=== PATIENT | male | born 1985 | race Caucasian/White ===

== ENCOUNTER 2020-07-01 11:02 | Emergency (ER) | payer MEDICAID ==
--- NOTE | 2020-07-01 11:35 | EDM.PDOC ---
ED HPI GENERAL MEDICAL PROBLEM - General Chief Complaint: General Stated Complaint: RETAINING FLUID HAS CHF Time Seen by Provider: 07/01/20 11:25 Source of Information: Reports: Patient History Limitations: Reports: No Limitations - History of Present Illness INITIAL COMMENTS - FREE TEXT/NARRATIVE: This 35 yo male patient reports to the ED with swelling of his lower extremities and increased shortness of breath. The patient reports he does have a history of CHF and was seen in [place] 2 weeks ago with similar symptoms. The patient reports he has been taking his medications as directed. The patient does admit to eating Ramen Noodles yesterday, but no additional changes to his diet. Onset Date: 06/30/20 Duration: Constant, Getting Worse Location: Reports: Chest, Lower Extremity, Left, Lower Extremity, Right Quality: Reports: Other Severity: Moderate Worsens with: Reports: None Context: Reports: Other Associated Symptoms: Reports: Shortness of Breath - Related Data Allergies Allergy/AdvReac Type Severity Reaction Status Date / Time ciprofloxacin [From Cipro] Allergy Cannot Verified 07/01/20 11:16 Remember Home Meds: Home Meds Furosemide [Lasix] 40 mg PO DAILY 07/01/20 [History] Potassium Chloride 1 tab PO DAILY 07/01/20 [History] Sacubitril/Valsartan [Entresto 24 mg-26 mg Tablet] 1 tab PO BID 07/01/20 [History] Past Medical History - Past Health History Medical/Surgical History: Denies Medical/Surgical History Cardiovascular History: Reports: Other (See Below) Other Cardiovascular History: CHF Social & Family History - Tobacco Use Tobacco Use Status *Q: Current Every Day Tobacco User Years of Tobacco use: 20 Packs/Tins Daily: 0.5 Used Tobacco, but Quit: No Second Hand Smoke Exposure: Yes - Caffeine Use Caffeine Use: Reports: Soda - Recreational Drug Use Recreational Drug Use: No ED ROS GENERAL - Review of Systems Review Of Systems: Comprehensive ROS is negative, except as noted in HPI. ED EXAM, GENERAL - Physical Exam Exam: See Below Exam Limited By: No Limitations General Appearance: Alert, WD/WN, No Apparent Distress Eye Exam: Bilateral Eye: EOMI, Normal Inspection, PERRL Ears: Normal External Exam, Normal Canal, Hearing Grossly Normal, Normal TMs Nose: Normal Inspection, Normal Mucosa, No Blood Throat/Mouth: Normal Inspection, Normal Lips, Normal Teeth, Normal Gums, Normal Oropharynx, Normal Voice, No Airway Compromise Head: Atraumatic, Normocephalic Neck: Normal Inspection, Supple, Non-Tender, Full Range of Motion Respiratory/Chest: No Respiratory Distress, Lungs Clear, Normal Breath Sounds, No Accessory Muscle Use, Chest Non-Tender Cardiovascular: Normal Peripheral Pulses, Regular Rate, Rhythm, No Gallop, No JVD, No Murmur, No Rub GI/Abdominal: Normal Bowel Sounds, Soft, Non-Tender, No Organomegaly, No Distention, No Abnormal Bruit, No Mass (Male) Exam: Deferred Rectal (Males) Exam: Deferred Back Exam: Normal Inspection, Full Range of Motion, NT Extremities: Pedal Edema Neurological: Alert, Oriented, CN II-XII Intact, Normal Cognition, Normal Gait, Normal Reflexes, No Motor/Sensory Deficits Psychiatric: Normal Affect, Normal Mood Skin Exam: Warm, Dry, Intact, Normal Color, No Rash Lymphatic: No Adenopathy #1 Interpretation EKG Date: 07/01/20 Time: 11:29 Rhythm: Other (Sinus Tach) [place]: Normal P-Wave: Present QRS: Normal ST-T: Normal QT: Normal Comparison: No Change Course - Vital Signs Last Recorded V/S: Last Vital Signs Temp 37.5 C 07/01/20 11:18 Pulse 109 H 07/01/20 11:18 Resp 18 07/01/20 11:18 BP 117/83 07/01/20 11:18 Pulse Ox 100 07/01/20 11:18 - Orders/Labs/Meds Orders: Active Orders 24 hr Category Date Time Status EKG Documentation Completion [RC] STAT Care 07/01/20 11:24 Ordered Labs: Laboratory Tests 07/01/20 07/01/20 Range/Units 11:34 11:34 WBC 4.7 L (5.0-10.0) 10^3/uL RBC 4.39 L (4.6-6.2) 10^6/uL Hgb 14.2 (14.0-18.0) g/dL Hct 41.9 (40.0-54.0) % MCV 95.4 (80-100) fL MCH 32.3 (27.0-34.0) pg MCHC 33.9 (33.0-35.0) g/dL Plt Count 157 (150-450) 10^3/uL Neut % (Auto) 55.6 (42.2-75.2) % Lymph % (Auto) 25.9 (20.5-50.1) % [place] % (Auto) 11.8 H (2-8) % Eos % (Auto) 5.8 H (1.0-3.0) % Baso % (Auto) 0.9 (0.0-1.0) % Sodium 140 (136-145) mmol/L Potassium 3.7 (3.5-5.1) mmol/L Chloride 104 (98-107) mmol/L Carbon Dioxide 27 (21-32) mmol/L Anion Gap 12.7 (7-13) mEq/L BUN 26 H (7-18) mg/dL Creatinine 1.26 (0.70-1.30) mg/dL Est Cr Clr Drug Dosing 88.10 mL/min Estimated GFR (MDRD) > 60 BUN/Creatinine Ratio 20.6 (No establ ref range) Glucose 122 H (74-99) mg/dL Calcium 8.2 L (8.5-10.1) mg/dL Total Bilirubin 1.1 H (0.2-1.0) mg/dL AST 67 H (15-37) U/L ALT 61 (16-63) U/L Alkaline Phosphatase 105 (46-116) U/L Troponin I 0.022 (0.000-0.056) ng/mL B-Natriuretic Peptide 1490 H (0-100) pg/ml Total Protein 6.2 L (6.4-8.2) g/dL Albumin 3.1 L (3.4-5.0) g/dL Globulin 3.1 Albumin/Globulin Ratio 1.00 Meds: Medications Discontinued Medications Generic Name Dose Route Start Last Admin Trade Name Freq PRN Reason Stop Dose Admin Furosemide 80 mg 07/01/20 12:21 07/01/20 12:38 Furosemide 40 Mg/4 Ml Vial IVPUSH 07/01/20 12:22 80 mg NOW ONE Administration Departure - Departure Time of Disposition: 13:50 Disposition: Home, Self-Care 01 Condition: Fair Clinical Impression: CHF (congestive heart failure) Qualifiers: Heart failure type: unspecified Heart failure chronicity: acute on chronic Qualified Code(s): I50.9 - Heart failure, unspecified - Discharge Information *PRESCRIPTION DRUG MONITORING PROGRAM REVIEWED*: Not Applicable *COPY OF PRESCRIPTION DRUG MONITORING REPORT IN PATIENT CASIMIRO: Not Applicable Instructions: Heart Failure, Self Care, [id number] Forms: ED Department Discharge Care Plan Goals: The patient was advised of the examination, lab, EKG and x-ray results during the visit. The patient was given an IV dose of Lasix while in the ED. The patient was encouraged to continue to take his medications as prescribed and follow a low sodium diet. The patient should follow-up with his primary care f acility next week. If the patient has any additional symptoms or concerns, the patient should either return to the emergency department or visit his primary care facility. Sepsis Event Note (ED) - Evaluation Sepsis Screening Result: No Definite Risk - Focused Exam Vital Signs: Vital Signs Temp Pulse Resp BP Pulse Ox 07/01/20 11:18 37.5 C 109 H 18 117/83 100 - My Orders Last 24 Hours: My Active Orders 07/01/20 11:24 EKG Documentation Completion [RC] STAT - Assessment/Plan Last 24 Hours: My Active Orders 07/01/20 11:24 EKG Documentation Completion [RC] STAT
[2020-07-01 12:01] LABS: ANION GAP 12.7 mEq/L (7-13); CHLORIDE,CL 104 mmol/L (98-107); SODIUM,NA 140 mmol/L (136-145)
--- NOTE | 2020-07-01 12:13 | CR ---
PROCEDURE INFORMATION: Exam: XR Chest Exam date and time: 07/01/2020 11:52 AM Age: 35 years old Clinical indication: Shortness of breath; Additional info: Short of breath (history of chf) TECHNIQUE: Imaging protocol: XR of the chest Views: 1 view. COMPARISON: No relevant prior studies available. FINDINGS: Lungs: No CHF. No consolidation. Pleural spaces: Unremarkable. No pleural effusion. No pneumothorax. Heart/Mediastinum: Cardiomegaly. Bones/joints: No acute findings. IMPRESSION: Cardiomegaly. No CHF.
[2020-07-01] MEDS ORDERED: Furosemide 40 MG/4 ML VIAL IVPUSH ONE (12:21)
== END 2020-07-01 14:13 | disposition home or self-care (01) ==
LOC: DL.ED 11:02
DX: I50.9 Heart failure, unspecified (principal); R00.0 Tachycardia, unspecified; Z72.0 Tobacco use; Z88.1 Allergy status to other antibiotic agents; Z79.899 Other long term (current) drug therapy
CPT/HCPCS: 36415; 71045; 80053; 83880; 84484; 85025; 93005; 93010; 96374; 99284; 99285; J1940

== ENCOUNTER 2020-08-05 01:40 | Emergency (ER) | payer MEDICAID ==
--- NOTE | 2020-08-05 01:47 | EDM.PDOC ---
ED HPI GENERAL MEDICAL PROBLEM - General Stated Complaint: CONGESTED HEART FAILURE, DIFFICULTY BREATHING Time Seen by Provider: 08/05/20 01:44 Source of Information: Reports: Patient, RN History Limitations: Reports: No Limitations - History of Present Illness INITIAL COMMENTS - FREE TEXT/NARRATIVE: ED with c/o retaining fluid, SOB swollen ankles. Has been increasing past couple of days worse tonight when trying to lie down, Hx of CHF secondary to ETOH and meth use. Cardiology f/u pending for pacemaker with AICD. States fluid restriction at home, " tries to stick to 1200ml daily" No fever or cough. No chest pain but felt heart punding harder when attempting to lie flat. - Related Data Allergies Allergy/AdvReac Type Severity Reaction Status Date / Time ciprofloxacin [From Cipro] Allergy Cannot Verified 07/01/20 11:16 Remember Home Meds: Home Meds Furosemide [Lasix] 40 mg PO DAILY 07/01/20 [History] Potassium Chloride 1 tab PO DAILY 07/01/20 [History] Sacubitril/Valsartan [Entresto 24 mg-26 mg Tablet] 1 tab PO BID 07/01/20 [History] Past Medical History - Past Health History Medical/Surgical History: Denies Medical/Surgical History Cardiovascular History: Reports: Other (See Below) Other Cardiovascular History: CHF Social & Family History - Caffeine Use Caffeine Use: Reports: Soda ED ROS GENERAL - Review of Systems Review Of Systems: Comprehensive ROS is negative, except as noted in HPI. ED EXAM, GENERAL - Physical Exam Exam: See Below Exam Limited By: No Limitations General Appearance: Alert, Anxious, Mild Distress Eye Exam: Bilateral Eye: EOMI, PERRL Nose: Normal Inspection Throat/Mouth: Normal Inspection Neck: Normal Inspection Respiratory/Chest: No Respiratory Distress, Decreased Breath Sounds, Crackles (few bibasilar), Other (talking full sentences without interrruption) Cardiovascular: Normal Peripheral Pulses, Regular Rate, Rhythm. No: No Edema (2+) GI/Abdominal: Normal Bowel Sounds, Other (abdomen orund) Neurological: Alert, Oriented Psychiatric: Anxious Course - Vital Signs Last Recorded V/S: Last Vital Signs Temp 97.2 F 08/05/20 01:43 Pulse 109 H 08/05/20 01:43 Resp 24 H 08/05/20 01:43 BP 155/135 H 08/05/20 01:43 Pulse Ox 100 08/05/20 01:43 - Orders/Labs/Meds Orders: Active Orders 24 hr Category Date Time Status EKG Documentation Completion [RC] URGENT Care 08/05/20 01:45 Active Labs: Laboratory Tests 08/05/20 08/05/20 08/05/20 Range/Units 01:48 01:48 01:48 WBC 6.1 (5.0-10.0) 10^3/uL RBC 4.93 (4.6-6.2) 10^6/uL Hgb 15.5 (14.0-18.0) g/dL Hct 47.1 (40.0-54.0) % MCV 95.5 (80-100) fL MCH 31.4 (27.0-34.0) pg MCHC 32.9 L (33.0-35.0) g/dL Plt Count 201 (150-450) 10^3/uL Neut % (Auto) 49.4 (42.2-75.2) % Lymph % (Auto) 34.7 (20.5-50.1) % [place] % (Auto) 11.6 H (2-8) % Eos % (Auto) 3.8 H (1.0-3.0) % Baso % (Auto) 0.5 (0.0-1.0) % PT 12.5 H (9.0-12.0) SEC INR 1.3 H (0.9-1.2) Sodium 133 L (136-145) mmol/L Potassium 4.5 (3.5-5.1) mmol/L Chloride 100 (98-107) mmol/L Carbon Dioxide 25 (21-32) mmol/L Anion Gap 12.5 (7-13) mEq/L BUN 28 H (7-18) mg/dL Creatinine 1.44 H (0.70-1.30) mg/dL Est Cr Clr Drug Dosing 77.09 mL/min Estimated GFR (MDRD) 55 BUN/Creatinine Ratio 19.4 (No establ ref range) Glucose 110 H (70-99) mg/dL Calcium 8.1 L (8.5-10.1) mg/dL Magnesium 2.0 (1.8-2.4) mg/dL Total Bilirubin 1.3 H (0.2-1.0) mg/dL AST 60 H (15-37) U/L ALT 56 (16-63) U/L Alkaline Phosphatase 142 H (46-116) U/L Troponin I < 0.017 (0.000-0.056) ng/mL B-Natriuretic Peptide 1720 H (0-100) pg/ml Total Protein 6.9 (6.4-8.2) g/dL Albumin 3.3 L (3.4-5.0) g/dL Globulin 3.6 Albumin/Globulin Ratio 0.92 Ethyl Alcohol (0) mg/dL 08/05/20 Range/Units 01:48 WBC (5.0-10.0) 10^3/uL RBC (4.6-6.2) 10^6/uL Hgb (14.0-18.0) g/dL Hct (40.0-54.0) % MCV (80-100) fL MCH (27.0-34.0) pg MCHC (33.0-35.0) g/dL Plt Count (150-450) 10^3/uL Neut % (Auto) (42.2-75.2) % Lymph % (Auto) (20.5-50.1) % [place] % (Auto) (2-8) % Eos % (Auto) (1.0-3.0) % Baso % (Auto) (0.0-1.0) % PT (9.0-12.0) SEC INR (0.9-1.2) Sodium (136-145) mmol/L Potassium (3.5-5.1) mmol/L Chloride (98-107) mmol/L Carbon Dioxide (21-32) mmol/L Anion Gap (7-13) mEq/L BUN (7-18) mg/dL Creatinine (0.70-1.30) mg/dL Est Cr Clr Drug Dosing mL/min Estimated GFR (MDRD) BUN/Creatinine Ratio (No establ ref range) Glucose (70-99) mg/dL Calcium (8.5-10.1) mg/dL Magnesium (1.8-2.4) mg/dL Total Bilirubin (0.2-1.0) mg/dL AST (15-37) U/L ALT (16-63) U/L Alkaline Phosphatase (46-116) U/L Troponin I (0.000-0.056) ng/mL B-Natriuretic Peptide (0-100) pg/ml Total Protein (6.4-8.2) g/dL Albumin (3.4-5.0) g/dL Globulin Albumin/Globulin Ratio Ethyl Alcohol < 3 (0) mg/dL Meds: Medications Discontinued Medications Generic Name Dose Route Start Last Admin Trade Name Freq PRN Reason Stop Dose Admin Furosemide 40 mg 08/05/20 02:33 08/05/20 02:39 Furosemide 40 Mg/4 Ml Vial IVPUSH 08/05/20 02:34 40 mg NOW ONE Administration Departure - Departure Time of Disposition: 03:13 Disposition: Home, Self-Care 01 Condition: Good Clinical Impression: CHF (congestive heart failure) Qualifiers: Heart failure type: unspecified Heart failure chronicity: acute on chronic Qualified Code(s): I50.9 - Heart failure, unspecified Instructions: Heart Failure, Diagnosis, [id number], Edema, [id number] Additional Instructions: limit fluids low sodium diet lasix 40mg additional at 4 pm x 2 days recheck Clinic on Sunday, Urgent follow up symptoms worsen, difficulty breathing, fever, cough chest pain Sepsis Event Note (ED) - Focused Exam Vital Signs: Vital Signs Temp Pulse Resp BP BP Pulse Ox 08/05/20 01:43 97.2 F 109 H 24 H 155/135 H 123/100 H 100 - My Orders Last 24 Hours: My Active Orders 08/05/20 01:45 EKG Documentation Completion [RC] URGENT - Assessment/Plan Last 24 Hours: My Active Orders 08/05/20 01:45 EKG Documentation Completion [RC] URGENT
[2020-08-05 02:20] LABS: ANION GAP 12.5 mEq/L (7-13); CHLORIDE,CL 100 mmol/L (98-107); SODIUM,NA 133 mmol/L (136-145)
[2020-08-05] MEDS ORDERED: Furosemide 40 MG/4 ML VIAL IVPUSH ONE (02:33)
--- NOTE | 2020-08-05 02:57 | CR ---
PROCEDURE INFORMATION: Exam: XR Chest Exam date and time: 08/05/2020 2:24 AM Age: 35 years old Clinical indication: Shortness of breath; Additional info: SOB, HX chf TECHNIQUE: Imaging protocol: XR of the chest. Views: 1 view. COMPARISON: CR Chest 1V Frontal 07/01/2020 11:52 AM FINDINGS: Lungs: Unremarkable. No consolidation. Pleural spaces: Unremarkable. No pleural effusion. No pneumothorax. Heart/Mediastinum: Enlarged cardiac silhouette. Bones/joints: Unremarkable. IMPRESSION: Enlarged cardiac silhouette.
== END 2020-08-05 03:29 | disposition home or self-care (01) ==
LOC: DL.ED 01:40
DX: I50.9 Heart failure, unspecified (principal); Z88.1 Allergy status to other antibiotic agents
CPT/HCPCS: 36415; 71045; 80053; 80307; 83735; 83880; 84484; 85025; 85610; 93005; 96374; 99283; 99285; J1940

== ENCOUNTER 2020-08-18 11:26 | Emergency (ER) | payer MEDICAID ==
[2020-08-18] MEDS ORDERED: Sodium Chloride 0.9% 10 ML Syringe FLUSH PRN (11:43)
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
[2020-08-18] MEDS ORDERED: Furosemide 40 MG/4 ML VIAL IVPUSH ONE (12:06)
--- NOTE | 2020-08-18 12:09 | CR ---
EXAMINATION: Chest 1V Frontal SEX: Male AGE: 35 years CLINICAL HISTORY: 35-year-old male complaining of chest pain. Comparison CXR 01 July and 05 August 2020. INTERPRETATION: Abnormal but no acute new cardiopulmonary abnormality. 1. Abnormally enlarged cardiac silhouette. 2. No pulmonary vascular congestion, new cephalization of flow, alveolar edema or dependent pleural fluid accumulation. 3. No new lung mass or hilar lymphadenopathy. 4. No alveolar consolidation or atelectasis/collapse. No peripheral "groundglass" interstitial lung densities. 5. No pneumothorax or pneumomediastinum.
[2020-08-18 12:33] LABS: PTT,PARTIAL THROMBOPLSTIN TIME 24.5 SEC (22.0-34.0)
[2020-08-18 12:42] LABS: ANION GAP 15.5 mEq/L (7-13); CHLORIDE,CL 102 mmol/L (98-107); SODIUM,NA 137 mmol/L (136-145)
[2020-08-18 12:57] LABS: CORONAVIRUS COVID-19 NAA NEGATIVE (NEGATIVE)
== END 2020-08-18 13:59 | disposition home or self-care (01) ==
LOC: DL.ED 11:26
DX: I50.9 Heart failure, unspecified (principal); F15.10 Other stimulant abuse, uncomplicated; Z88.1 Allergy status to other antibiotic agents; Z20.822 Contact with and (suspected) exposure to COVID-19
CPT/HCPCS: 0240U; 36415; 71045; 80053; 80305-QW; 83605; 83880; 84484; 85025; 85610; 85730; 86140; 87040; 93005; 93010; 96374; 99284; 99285-25; J1940

== ENCOUNTER 2021-08-16 17:22 | Emergency (ER) | payer MEDICAID ==
[2021-08-16 18:06] LABS: METHAMPHETAMINES,URINE POSITIVE (NEGATIVE)
[2021-08-16 18:07] LABS: AMPHETAMINES,URINE POSITIVE (NEGATIVE); BARBITURATES,URINE NEGATIVE (NEGATIVE); BENZODIAZEPINE,URINE NEGATIVE (NEGATIVE); MDMA (ECSTASY), URINE POSITIVE (NEGATIVE); METHADONE,URINE NEGATIVE (NEGATIVE); OPIATES,URINE NEGATIVE (NEGATIVE); OXYCODONE,URINE NEGATIVE (NEGATIVE); PHENCYCLIDINE,URINE NEGATIVE (NEGATIVE); TCA,URINE NEGATIVE (NEGATIVE)
[2021-08-16 18:13] LABS: ANION GAP 13.3 mEq/L (7-13); CHLORIDE,CL 101 mmol/L (98-107); SODIUM,NA 138 mmol/L (136-145)
[2021-08-16 18:18] LABS: ACETAMINOPHEN 0 ug/mL (10-30 (Therapeutic))
== END 2021-08-16 18:35 | disposition home or self-care (01) ==
LOC: DL.ED 17:22
DX: I50.22 Chronic systolic (congestive) heart failure (principal); F10.10 Alcohol abuse, uncomplicated; F15.10 Other stimulant abuse, uncomplicated; E78.00 Pure hypercholesterolemia, unspecified; Z88.1 Allergy status to other antibiotic agents; Z72.0 Tobacco use; Z20.822 Contact with and (suspected) exposure to COVID-19
CPT/HCPCS: 36415; 71045; 80053; 80143; 80179; 80305-QW; 80307; 81001; 83735; 83880; 85025; 99284; 99284-25; U0002

== ENCOUNTER 2021-09-22 17:05 | Emergency (ER) | payer MEDICAID ==
[2021-09-22 17:50] LABS: AMPHETAMINES,URINE NEGATIVE (NEGATIVE); BARBITURATES,URINE NEGATIVE (NEGATIVE); BENZODIAZEPINE,URINE NEGATIVE (NEGATIVE); MDMA (ECSTASY), URINE NEGATIVE (NEGATIVE); METHADONE,URINE NEGATIVE (NEGATIVE); METHAMPHETAMINES,URINE NEGATIVE (NEGATIVE); OPIATES,URINE NEGATIVE (NEGATIVE); OXYCODONE,URINE NEGATIVE (NEGATIVE); PHENCYCLIDINE,URINE NEGATIVE (NEGATIVE); TCA,URINE NEGATIVE (NEGATIVE)
[2021-09-22 17:53] LABS: ANION GAP 13.3 mEq/L (7-13)
== END 2021-09-22 19:36 ==
LOC: DL.ED 17:05
DX: F10.29 Alcohol dependence with unspecified alcohol-induced disorder (principal); E78.00 Pure hypercholesterolemia, unspecified; F17.210 Nicotine dependence, cigarettes, uncomplicated; Z88.1 Allergy status to other antibiotic agents; Z79.899 Other long term (current) drug therapy; Y90.4 Blood alcohol level of 80-99 mg/100 ml
CPT/HCPCS: 36415; 80053; 80143; 80179; 80305-QW; 80307; 81003; 82140; 83605; 83735; 83880; 85025; 99284

== ENCOUNTER 2021-11-06 21:55 | Emergency (ER) | payer MEDICAID | END 2021-11-06 22:23 | LOC: DL.ED 21:55 | DX: F10.10 Alcohol abuse, uncomplicated (principal); F17.210 Nicotine dependence, cigarettes, uncomplicated; Z88.1 Allergy status to other antibiotic agents; Z79.899 Other long term (current) drug therapy | CPT/HCPCS: 99282; 99284 ==